=== PATIENT | male | born 1980 | race Caucasian/White ===

== ENCOUNTER 2017-01-15 09:21 | Day surgery (SDC) | payer OTHER ==
[~2017-01-15] VITALS: Ht 210.8 cm; Wt 71.1 kg
[~2017-01-15 09:21] MED LIST: EXCETAB80 PO; FISH100049 PO; INSUDET SC; INSUHUMDS SC; LIPI10TA PO; MOBI15TA PO; NORC7.5T35 PO; PEPT262T2 PO; PROPOFOL 200 MG/20 ML VIAL As Ordered ONE; TRES1INJ SC; VITA-137 PO; VITA100T98 PO; ZOLM5TAB PO; excedrin migraine OR
[2017-01-15] MEDS ORDERED: NS 500 ML IV SCH (09:30)
--- NOTE | 2017-01-15 10:54 | ROOR ---
Patient Name: Leroy Nettles Procedure Date: 01/15/2017 10:39 AM Date of : 1980 Age: 36 Room: [facility] Gender: Male Note Status: Finalized Procedure: Total Colonoscopy to Cecum Indications: Screening in patient at increased risk: Colorectal cancer in brother before age 60 Providers: Sedrick Quintanilla MD Referring MD: Ivan Perea Requesting Provider: Medicines: Monitored Anesthesia Care Complications: No immediate complications. Procedure: Pre-Anesthesia Assessment: - The heart rate, respiratory rate, oxygen saturations, blood pressure, adequacy of pulmonary ventilation, and response to care were monitored throughout the procedure. The Colonoscope was introduced through the anus and advanced to the cecum, identified by appendiceal orifice and ileocecal valve. The colonoscopy was performed without difficulty. The patient tolerated the procedure well. The quality of the bowel preparation was excellent. Findings: The perianal and digital rectal examinations were normal. Non-bleeding internal hemorrhoids were found during retroflexion. The hemorrhoids were small and Grade I (internal hemorrhoids that do not prolapse). No other significant abnormalities were identified in a careful examination of the remainder of the colon. The exam was otherwise without abnormality on direct and retroflexion views. Impression: - Non-bleeding internal hemorrhoids. - The examination was otherwise normal on direct and retroflexion views. - No specimens collected. - The exam was otherwise normal to the cecum. Recommendation: - Patient has a contact number available for emergencies. The signs and symptoms of potential delayed complications were discussed with the patient. Return to normal activities tomorrow. Written discharge instructions were provided to the patient. - High fiber diet. - Discharge patient to home. - Continue present medications. - Repeat colonoscopy in 5 years for screening purposes. - Return to referring physician. - The findings and recommendations were discussed with the patient's family. Sedrick Quintanilla MD Sedrick Quintanilla MD 01/15/2017 10:54:09 AM This report has been signed electronically. Number of Addenda: 0 Note Initiated On: 01/15/2017 10:39 AM Estimated Blood Loss: Estimated blood loss: none.
[2017-01-15 11:18] VITALS: BP 118/75
== END 2017-01-15 11:18 | disposition home or self-care (01) ==
LOC: M OPP 09:21 → EDSTATUS 10:45 → M OPP 11:18
PROVIDERS: ATTEND Internal Medicine Gastroenterology
DX: Z12.11 Encounter for screening for malignant neoplasm of colon (principal); Z80.0 Family history of malignant neoplasm of digestive organs; K64.0 First degree hemorrhoids; E78.5 Hyperlipidemia, unspecified; E10.9 Type 1 diabetes mellitus without complications; I73.00 Raynaud's syndrome without gangrene; M19.90 Unspecified osteoarthritis, unspecified site; G43.909 Migraine, unspecified, not intractable, without status migrainosus; G47.30 Sleep apnea, unspecified; F17.220 Nicotine dependence, chewing tobacco, uncomplicated; Z79.899 Other long term (current) drug therapy